=== PATIENT | female | born 1985 | race African-American/Black ===

== ENCOUNTER 2023-07-23 08:27 | Outpatient (OUT) | payer BC, SELFPAY ==
--- NOTE | 2023-07-23 08:32 | XR_ITS ---
The [address] [address] Patient Name: MEHDI ROSARIO MRN: [id number] date: 1985 Sex: F Assigned Patient Location: [facility] Current Patient Location: [facility] Accession/Order Number: [id number] Exam Date: 07/23/2023 08:42 Report Date: 07/23/2023 09:18 At the request of: PIETRO HOLLEY Procedure: XR chest 2V EXAM: XR chest 2V HISTORY: Bronchitis J40 COMPARISON: None. TECHNIQUE: PA and lateral views of the chest. FINDINGS: The cardiomediastinal silhouette is normal. No focal consolidation is identified. There is no pneumothorax. No pleural effusion is noted. The osseous structures are intact. XR/XR chest 2V IMPRESSION: No acute cardiopulmonary process. Electronically authenticated by: ANGEL WATERS Date: 07/23/2023 09:18
== END 2023-07-23 08:28 | disposition home or self-care (01) ==
LOC: RAD 08:27
PROVIDERS: PCP Nurse Practitioner Family; Visit Provider Nurse Practitioner Family
DX: J40 Bronchitis, not specified as acute or chronic (principal)
CPT/HCPCS: 71046

== ENCOUNTER 2023-10-29 19:58 | Outpatient (REF) | payer BC, SELFPAY ==
--- OUTSIDE RECORDS SUMMARY | 2023-10-29 20:03 | XMS_ITS | CCD ---
Author Name Unknown Address [address] [place] [address] Organization [facility] Care Team Providers Care Correctional Officer Chief Name Role Phone DR EMMANUEL HEIN Admitting Unavailable MELVINA, DR BENITEZ Attending Unavailable PIETRO HOLLEY Primary Care Unavailable WEST, DR INO Mc Consulting Unavailable MELVINA, DR BENITEZ Consulting Unavailable MELVINA, DR BENITEZ Admitting Unavailable MELVINA, DR BENITEZ Attending Unavailable KISHAN PIETRO [facility] Care Unavailable MELVINA, DR BENITEZ Consulting Unavailable Allergies Allergy Classification Reported Allergen(s) Allergy Type Date of Onset Reaction(s) Facility (1 source) Bisacodyl Drug Allergy 06-25-2015 [facility] (1 source) Loperamide Drug Allergy 10-16-2014 [facility] (1 source) Plasmin Drug Allergy 10-16-2014 [facility] Problems Problem Classification Problem Date Documented Date Episodic/Chronic Immunizations and screening for infectious disease (1 source) Encounter for screening for human papillomavirus (HPV); Translations: [ENC SCREENING HUMAN PAPILLOMAVIRUS] Onset: 09-29-2022 Episodic Menstrual disorders (4 sources) Irregular menstruation, unspecified; Translations: [IRREGULAR MENSTRUATION UNSPECIFIED] Onset: 10-18-2022 Chronic Other screening for suspected conditions (not mental disorders or infectious disease) (4 sources) Encounter for screening for malignant neoplasm of cervix; Translations: [ENC SCREENING MALIG NEOPLASM CERV] Onset: 09-25-2022 Episodic Results Test Name Value Interpretation Reference Range Facil ity US PELVIS AND TRANSVAGon US PELVIS AND TRANSVAG EXAMINATION: US PELVIS AND TRANSVAG HISTORY: Irregular periods COMPARISON: 01/26/2021 FINDINGS: Limited by patient body habitus. Transabdominal and transvaginal images The uterus is normal in size, contour and myometrial echotexture measuring 7.8 x 3.2 x 3.6 cm. No focal myometrial mass. Anteverted, anteflexed. Multiple areas of anechoic echogenicity in the cervix likely nabothian cysts The endometrium measures 8 mm, normal. The right ovary is grossly normal measuring 1.6 x 1.3 x 1.7 cm. The left ovary is grossly normal measuring 2.6 x 1.8 x 1.9 cm IMPRESSION: No acute abnormality Electronically authenticated by: INO BLACK Date: 2022-10-19 06:52 Normal [facility] PAP ACOG PANEL 2: 30 to 65on 09-28-2022 . . Normal [facility] Comment on above: Result Comment: Perf ormed at: WB Performed By: #### [id number] #### [facility] [address] [address] [address] Ashley Baez Age Gdln ACOG Testing - Normal [facility] Comment on above: Performed By: #### [id number] #### [facility] [address] [address] [address] Ashley Baez DIAGNOSIS: Comment Normal [facility] Comment on above: Result Comment: NEGA TIVE FOR INTRAEPITHELIAL LESION OR MALIGNANCY. Performed at: WB Performed By: #### [id number] #### [facility] [address] [address] [address] Ashley Baez HPV Aptima Negative Normal Negative [facility] Comment on above: Result Comment: This nucleic acid amplification test detects fourteen high-risk HPV types (16,18,31,33,35,39,45,51,52,56,58,59,66,68) without differentiation. Performed at: =G Performed By: #### [id number] #### [facility] [address] [address] [address] Ashley Baez HPV Genotype Reflex Comment Normal [facility] Comment on above: Result Comment: Crit eria not met, HPV Genotype not performed. Performed at: WB Performed By: #### [id number] #### [facility] [address] [address] [address] Ashley Baez Methodology: Comment Normal [facility] Comment on above: Result Comment: This liquid based ThinPrep(R) pap test was screened with the use of an image guided system. Performed at: WB Performed By: #### [id number] #### [facility] [address] [place] [address] Dr. Ashley Baez Note: Comment Normal [facility] Comment on above: Result Comment: The Pap smear is a screening test designed to aid in the detection of premalignant and malignant conditions of the uterine cervix. It is not a diagnostic procedure and should not be used as the sole means of detecting cervical cancer. Both false-positive and false-negative reports do occur. . Performed at: WB Performed By: #### [id number] #### [facility] [address] [address] [address] Ashley Baez Performed by: Comment Normal [facility] Comment on above: Result Comment: [employer] (ASCP) Performed at: WB Performed By: #### [id number] #### [facility] [address] [place] [address] Dr. Ashley Baez Specimen adequacy: Comment Normal [facility] Comment on above: Result Comment: Sati sfactory for evaluation. No endocervical component is identified. Performed at: WB Performed By: #### [id number] #### [facility] [address] [place] [address] Dr. Ashley Baez Encounters Encounter Date Encounter Type Care Provider Facility Start: 10-18-2022 End: 10-19-[address] EMMANUEL HEIN Facility: Start: 09-25-2022 End: 09-25-[address] EMMANUEL HEIN Facility:[facility] Payers Date Payer Category Payer Unknown [id number] 1985 Unknown [id number] 1957 Unknown [id number] Summary Purpose Family History No Family History Records Found Advance Directives No Advanced Directives Records Found Additional Source Comments INFORMATION SOURCE (unrecogn ized section and content) DATE CREATED AUTHOR 10/22/2022 [facility] FOR RECORDS PERTAINING TO PATIENTS WHO ARE OR HAVE BEEN ENROLLED IN A CHEMICAL DEPENDENCY/SUBSTANCEABUSE PROGRAM, SOME INFORMATION MAY BE OMITTED. This clinical summary was aggregated from multiple sources. Caution should be exercised in using it in the provision of clinical care. This summary normalizes information from multiple sources, and as a consequence, information in this document may materially change the coding, format and clinical context of patient data. In addition, data may be omitted in some cases. CLINICAL DECISIONS SHOULD BE BASED ON THE PRIMARY CLINICAL RECORDS. [facility] provides no warranty or guarantee of the accuracy or completeness of information in this document.
[2023-11-02 09:08] LABS: Age Gdln ACOG Testing Note (.); HPV Aptima Negative (Negative); IGP, Aptima HPV, rfx 16/18,45 Note (.)
== END 2023-10-29 19:59 | disposition home or self-care (01) ==
LOC: LAB 19:58
PROVIDERS: PCP Nurse Practitioner Family; Visit Provider Obstetrics & Gynecology
DX: Z01.419 Encounter for gynecological examination (general) (routine) without abnormal findings (principal)
CPT/HCPCS: 87624; G0145

== ENCOUNTER 2024-11-03 19:40 | Outpatient (REF) | payer BC, SELFPAY ==
--- OUTSIDE RECORDS SUMMARY | 2024-11-03 19:43 | XMS_ITS | CCD ---
Author Organization [facility] Care Team Providers Care Engagement Lead Name Role Phone DR EMMANUEL HENRY Admitting Unavailable MELVINA, DR BENITEZ Attending Unavailable PIETRO HOLLEY Primary Care Unavailable WEST, DR INO Mc Consulting Unavailable MELVINA, DR BENITEZ Consulting Unavailable MELVINA, DR BENITEZ Admitting Unavailable MELVINA, DR BENITEZ Attending Unavailable PIETRO HOLLEY Primary Care Unavailable MELVINA, DR BENITEZ Consulting Unavailable Puneet CLAYTON, Hung Primary Care Provider Cristina Bateman DO Unavailable EMMANUEL HENRY Attending Unavailable MANUEL JOSHUA Attending Unavailable MANUEL JOSHUA Referring Unavailable Allergies Allergy Classification Reported Allergen(s) Allergy Type Date of Onset Reaction(s) Facility (1 source) Bisacodyl Drug Allergy 5 [facility] (1 source) Loperamide Drug Allergy 5 [facility] (1 source) Plasmin Drug Allergy 5 [facility] (3 sources) Loperamide Drug Allergy 3 Unknown [facility] (3 sources) Loratadine Allergy to substance 3 Unknown [facility] (3 sources) Mold Extract Drug Allergy 4 Unknown [facility] (3 sources) SUMAtriptan Drug Allergy 4 Dizziness, Unknown [facility] Medications Current Medications Medication Drug Class(es) Dates Sig (Normalized) Sig (Original) [id number] 200 actuat albuterol 0.09 mg/actuat metered dose inhaler (3 sources) beta2-Adrenergic Agonist Start: 11-24-19 23 End: 09-15-19 25 take 1-2 puff(s) by mouth every four hours as needed albuterol HFA 90 mcg/act inhaler INHALE 1 TO 2 PUFFS BY MOUTH EVERY 4 HOURS NEEDED 11/23/2022 09/15/2024 Discontinued Bioflavonoid Products (Carmen-C) tablet (3 sources) Bioflavonoid Pro ducts (Carmen-C) tablet Take by mouth. Active Elderberry preparation (3 sources) Elderberry 500 M G capsule Elderberry Active [id number] 0.3 ml EPINEPHrine 1 mg/ml auto-injector (3 sources) alpha-Adrenergic Agonist, beta-Adrenergic Agonist, Catecholamine EPINEPHrine (Epipen) 0.3 MG/0.3ML injection syringe DIRECTED Active ethinyl estradiol 0.035 mg / norethindrone 0.75 mg oral tablet (3 sources) Estrogen Start: 10-29-19 End: 10-28-19 take 1 tablet by mouth in the morning norethindrone-ethinyl estradiol (Ortho-Novum , 28,) 0.5/0.75/1-35 MG-MCG tablet Indications: control counseling Take 1 tablet by mouth in the morning. 28 tablet 12 10/29/2023 10/28/2024 Active medroxyPROGESTERone acetate 10 mg oral tablet (3 sources) Progestin Start: 09-26-19 take 1 tablet by mouth in the morning medroxyPROGESTERone (Provera) 10 MG tablet Take 10 mg by mouth in the morning. 09/26/2022 Active 24 hr metFORMIN hydrochloride 500 mg extended release oral tablet (3 sources) Biguanide Start: 12-27-19 take 2 tablets by mouth every twenty-four hours at mealtime metFORMIN XR (Glucophage-XR) 500 MG 24 hr tablet Indications: Insulin resistance Take 2 tablets (1,000 mg) by mouth in the evening. Take with meals 60 tablet 11 12/27/2023 Active Misc Natural Products (AIRBORNE ELDERBERRY PO) (3 sources) Misc Natural Pro ducts (AIRBORNE ELDERBERRY PO) Airborne Elderberry Active Multiple Vitamins-Minerals (Airborne) effervescent tablet (3 sources) Multiple Vitamins-Minerals (Airborne) effervescent tablet Take by mouth. Active predniSONE 10 mg oral tablet (2 sources) Start: 09-15-19 End: 09-27-19 predniSONE (Deltasone) 10 MG tablet Indications: Achilles tendinitis of right lower extremity Take 1 tablet (10 mg) by mouth See administration instructions for 12 days Take one tablet three times a day x 3 days, then take one tablet twice a day x 3 days, then take one tablet once a day x 3 days, then take 1/2 tab once a day x 3 days 20 tablet 09/15/2024 09/27/2024 Active Problems Problem Classification Problem Date Documented Date Episodic/Chronic Immunizations and screening for infectious disease (1 source) Encounter for screening for human papillomavirus (HPV); Translations: [ENC SCREENING HUMAN PAPILLOMAVIRUS] Onset: 09-29-2022 Episodic Menstrual disorders (4 sources) Irregular menstruation, unspecified; Translations: [IRREGULAR MENSTRUATION UNSPECIFIED] Onset: 10-18-2022 Chronic Other connective tissue disease (2 sources) Right achilles tendonitis; Translations: [Achilles tendinitis, right leg] 09-15-2024 Episodic Other connective tissue disease (2 sources) Deformity of lower limb; Translations: [Contracture of muscle, right lower leg] 09-15-2024 Episodic Other connective tissue disease (2 sources) Pain in right heel; Translations: [Pain in right foot] 09-15-2024 Episodic Other screening for suspected conditions (not mental disorders or infectious disease) (4 sources) Encounter for screening for malignant neoplasm of cervix; Translations: [ENC SCREENING MALIG NEOPLASM CERV] Onset: 09-25-2022 Episodic Results Test Name Value Interpretation Reference Range Facil ity XR Calcaneus - right 2 Views on 09-15-2024 Imaging Result: Lateral and calcaneal axial views taken of right heel and show no fractures or dislocations. No lytic lesion with os calcis. Small posterior heel spurring present. Rectus foot type. Small osteophyte formation dorsal tn joint. [facility] Study observation (narrative) [facility] US PELVIS AND TRANSVAGon US PELVIS AND [...] by: INO BLACK Date: 2022-10-19 06:52 Normal [facility] PAP ACOG PANEL 2: 30 to 65on 09-28-2022 . . Normal [facility] Comment on above: Result Comment: Perf ormed at: WB Performed By: #### [id number] #### [facility] [address] [place] [address] Dr. Ashley Baez Age Gdln ACOG Testing Normal [facility] Comment on above: Performed By: #### [id number] #### [facility] [address] [place] [address] Dr. Ashley Baez DIAGNOSIS: Comment Normal [facility] Comment on above: Result Comment: NEGA TIVE FOR INTRAEPITHELIAL LESION OR MALIGNANCY. Performed at: WB Performed By: #### [id number] #### [facility] [address] [place] [address] Dr. Ashley Baez HPV Aptima Negative Normal Negative [facility] Comment on above: Result Comment: This nucleic acid amplification test detects fourteen high-risk HPV types (16,18,31,33,35,39,45,51,52,56,58,59,66,68) without differentiation. Performed at: =G Performed By: #### [id number] #### [facility] [address] [address] [address] Ashley Baez HPV Genotype Reflex Comment Normal [facility] Comment on above: Result Comment: Crit eria not met, HPV Genotype not performed. Performed at: WB Performed By: #### [id number] #### [facility] [address] [place] [address] Dr. Ashley Baez Methodology: Comment Normal [facility] Comment on above: Result Comment: This liquid based ThinPrep(R) pap test was screened with the use of an image guided system. Performed at: WB Performed By: #### [id number] #### [facility] [address] [place] [address] Dr. Ashley Baez Note: Comment Normal [facility] Comment on above: Result Comment: The Pap smear is a screening test designed to aid in the detection of premalignant and malignant conditions of the uterine cervix. It is not a diagnostic procedure and should not be used as the sole means of detecting cervical cancer. Both false-positive and false-negative reports do occur. . Performed at: WB Performed By: #### [id number] #### [facility] [address] [place] [address] Dr. 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 Ashley Baez Specimen adequacy: Comment Normal [facility] Comment on above: Result Comment: Sati sfactory for evaluation. No endocervical component is identified. Performed at: WB Performed By: #### [id number] #### [facility] [address] [place] [address] Dr. Ashley Baez Vital Signs Date Time Vital Sign Value Performing Clinician Justus escalera 09-15-2024 09:36-0500 Body height 172.7 cm Manuel TOTHM Work Phone: [facility] 09-15-2024 09:36-0500 Body mass index (BMI) [Ratio] 59 kg/m2 Manuel Joshua DPM Work Phone: [facility] 09-15-2024 09:36-0500 Body weight 176 kg Manuel TOTHM Work Phone: [facility] Healthcare Encounters Encounter Date Encounter Type Care Provider Facility Start: 09-15-2024 End: 09-15-2024 Bamboo flowsheet Manuel Joshua DPM Work Phone: [facility] Start: 09-15-2024 End: 09-15-2024 Bamboo flowsheet Manuel Joshua DPM Work Phone: [facility] Start: 09-15-2024 End: 09-15-2024 ambulatory MANUEL JOSHUA Not Available Start: 09-15-2024 End: 09-15-2024 Office outpatient new 45 minutes Manuel Joshua DPM Work Phone: [facility] Comment on above: Achilles tendinitis of right lower extremity (Primary Dx); Gastrocnemius equinus of right lower extremity; Pain of right heel Start: 09-15-2024 End: 09-15-2024 ambulatory MANUEL JOSHUA Not Available Start: 10-29-2023 End: 10-29-2023 ambulatory EMMANUEL HENRY Not Available Start: 10-18-2022 End: 10-19-[address] EMMANUEL HENRY Facility:[facility] Start: 09-25-2022 End: 09-25-[address] EMMANUEL HENRY Facility:[facility] Procedures Date Procedure Procedure Detail Performing Clinician Start: 09-15-2024 Radex calcaneus mini mum 2 views Manuel Joshua DPM Work Phone: Start: 09-25-2022 Microscopic observat ion [Identifier] in Cervix by Cyto stain Manuel Joshua DPM Work Phone: Plan of Treatment Date Care Activity Detail Author Start: 09-25-2027 Screening for malign ant neoplasm of cervix [facility] Start: 11-03-2024 End: 11-03-2024 Patient encounter procedure 11/03/2024 1:00 PM EST Office Visit [facility] [address] [place] [address] Emmanuel Henry, [address] [place], [place] [id number] [facility] Start: 10-13-2024 End: 10-13-2024 Patient encounter procedure 10/13/2024 8:30 AM EST Office Visit [facility] [address] [place] [address] Manuel Joshua DPM [address] [place], [place] [id number] [facility] Start: 09-15-2024 End: 09-15-2024 Patient encounter procedure 09/15/2024 9:30 AM EST Office Visit [facility] [address] [place] [address] Manuel Joshua DPM [address] [place] [address] Arrived [facility] Comment on above: Arrived Start: 05-10-2024 Influenza vaccination Influenza Vacc ine (#1) [facility] Healthcare Payers Date Payer Category Payer [facility] [id number] 1987 Unknown [id number] 1987 Unknown [id number] 1987 Unknown [id number] 1987 Unknown [id number] 1987 Unknown [id number] 1959 Unknown [id number] Social History Date Type Detail Facility Start: 05-31-2023 End: 09-15-2024 Tobacco smoking status NHIS Never smoked tobacco [facility] care Start: 10-29-2023 End: 09-15-2024 Alcoholic beverage intake Current drinker of alcohol (finding) [facility] Start: 05-31-2023 End: 09-15-2024 History of Social function [facility] Start: 05-31-2023 End: 09-15-2024 Tobacco use panel [facility] Start: 1985 Sex assigned at Not on file N [facility] History of Present illness Narrative 09-15-2024 Manuel Joshua, DPM - 09/15/2024 9:30 AM EST Note Date & Type Note Facility 09-15-2024 History of Presen t illness Narrative Images from the original note were not included. Subjective Patient ID: Eloisa Currie is a 39 y.o. female who presents for Foot Pain (Eloisa Currie 39yo Established patient presents Right heel pain, started 3 weeks ago, NKI, patient relates icing, heat. Advil 1 time daily. Typically wears [place]. SS 11). HPI Patient presents complaining of right heel pain that has been present for 3 weeks. She denies injury. She has not diabetic. She states the heel is painful 1st thing in the morning and with each step she takes. She is tried Advil, ice, heat. She wears Watson dress shoes. 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 Where she spends most of her day seated. She has worn inserts in the past, but has not worn them recently Review of Systems Medications Current Outpatient Medications: Bioflavonoid Products (Carmen-C) tablet, Take by mouth., Disp: , Rfl: Elderberry 500 MG capsule, Elderberry, Disp: , Rfl: EPINEPHrine (Epipen) 0.3 MG/0.3ML injection syringe, DIRECTED, Disp: , Rfl: medroxyPROGESTERone (Provera) 10 MG tablet, Take 10 mg by mouth in the morning., Disp: , Rfl: metFORMIN XR (Glucophage-XR) 500 MG 24 hr tablet, Take 2 tablets (1,000 mg) by mouth in the evening. Take with meals, Disp: 60 tablet, Rfl: 11 Misc Natural Products (AIRBORNE ELDERBERRY PO), Airborne Elderberry, Disp: , Rfl: Multiple Vitamins-Minerals (Airborne) effervescent tablet, Take by mouth., Disp: , Rfl: norethindrone-ethinyl estradiol (Ortho-Novum , 28,) 0.5/0.75/1-35 MG-MCG tablet, Take 1 tablet by mouth in the morning., Disp: 28 tablet, Rfl: 12 predniSONE (Deltasone) 10 MG tablet, Take 1 tablet (10 mg) by mouth See administration instructions for 12 days Take one tablet three times a day x 3 days, then take one tablet twice a day x 3 days, then take one tablet once a day x 3 days, then take 1/2 tab once a day x 3 days, Disp: 20 tablet, Rfl: 0 Allergies Loperamide hcl, Loratadine, Molds & smuts, and Sumatriptan Past Surgical History Past Surgical History: Procedure Laterality Date BACK SURGERY 10/2020 ablasion Family History No family history on file. Objective Physical Exam Constitutional: General: She is not in acute distress. HENT: Head: Atraumatic. Cardiovascular: Comments: Pedal pulses: DP pulses are 2/4, PT pulses are 2/4 Skin temp is warm to warm. Varicosities: none Hair growth: present Pulmonary: Effort: Pulmonary effort is normal. No respiratory distress. Musculoskeletal: Comments: ROM: AJ dorsiflexion is limited with knee extended and does not improve with knee flexed. STJ ROM WNL. MUSCLE STRENGTH: 5/5 for all quadrants without tenderness. PAIN: Pain with palpation of the Achilles tendon at the musculotendinous junction, watershed zone, and insertion. Most severe pain is at the achilles insertion. There is no pain with lateral compression of heel. No pain at peroneal or PT tendon. WB exam shows mild collapse of the medial longitudinal arch. She is able to do a double heel rise, hindfoot inverts past neutral Skin: General: Skin is warm. Capillary Refill: Capillary refill takes less than 2 seconds. Findings: No bruising or erythema. Comments: SKIN FINDINGS: Webspaces are clean and dry. Skin turgor and texture normal HYPERKERATOSIS: none Neurological: Mental Status: She is alert. Comments: No loss of protective sensation, gross sensation intact. Psychiatric: Mood and Affect: Mood normal. Behavior: Behavior normal. XR calcaneus 2 views right Imaging Result: Lateral and calcaneal axial views taken of right heel and show no fractures or dislocations. No lytic lesion with os calcis. Small posterior heel spurring present. Rectus foot type. Small osteophyte formation dorsal tn joint. Assessment/Plan ICD-10-CM 1. Achilles tendinitis of right lower extremity M76.61 XR calcaneus 2 views right predniSONE (Deltasone) 10 MG tablet 2. Gastrocnemius equinus of right lower extremity M62.461 3. Pain of right heel M79.671 Patient was examined and evaluated. Reviewed radiographic and clinical findings with the patient. Discuss diagnosis of Achilles tendonitis with the patient. Stress the importance of good supportive tie shoes. Advise no flip flops, slippers, sandals, nor bare feet. Recommended she be fit and measured for new tennis shoes at [employer]. This information was dispensed to the patient. Explain the anatomy of the Achilles tendon, equinus, and heel spurs. Demonstrate stretching exercises and give handout for the same. Also advise icing therapy. Patient Has dress shoes today so she was unable to effectively try a power step orthotics. She will return with her tennis shoes to try a power step inserts. I also discussed that we could try heel lifts at that time. ERx Prednisone 10 mg taper. Potential S.E. cautioned. Activity discussed and to minimize irritation to the heel area. RTO 4 weeks. At that time may consider physical therapy or a peroid of immobilization if minimal improvement This note was created with the assistance of a speech recognition program. While intending to generate a timely document that accurately reflects the content of the visit, no guarantee can be provided that every grammatical or spelling mistake has been or will be identified or corrected. Thank you for your understanding. Manuel Joshua DPM documented in this encounter [facility] Evaluation note Note Date & Type Note Facility Evaluation note Diagnosis Achilles tendinitis of right lower extremity- Primary Gastrocnemius equinus of right lower extremity Pain of right heel documented in this encounter [facility] Summary Purpose Family History No Family History Records FoundNo Family History Records Found Advance Directives No Advanced Directives Records FoundNo Advanced Directives Records Found Additional Source Comments INFORMATION SOURCE (unrecogn ized section and content) DATE CREATED AUTHOR 10/22/2022 [facility] DATE CREATED AUTHOR AUTHOR'S ORGANIZ ATION 09/21/2024 [facility] Care Teams (unrecognized sec tion and content) Engagement Lead Relationship Specialty Start Date End Date Hung Teixeira MD [address] [place] [address] PCP - General Family Medicine 08/24/24 Cristina Bateman DO [address] [place] [address] Referring Physician Neurology 08/24/24 Engagement Lead Relationship Specialty Start Date End Date Hung Teixeira MD [address] [place] [id number] [phone] PCP - General Family Medicine 08/24/24 Cristina Bateman DO [address] [place] [address] Referring Physician Neurology 08/24/24 Reason for Visit (unrecogniz ed section and content) Reason Comments Foot Pain Eloisa Currie 39yo E stablished patient presents Right heel pain, started 3 weeks ago, NKI, patient relates icing, heat. Advil 1 time daily. Typically wears [place]. SS 11 FOR RECORDS PERTAINING TO PATIENTS WHO ARE [...] BE BASED ON THE PRIMARY CLINICAL RECORDS. [facility] [employer] [facility]. provides no warranty or guarantee of the accuracy or completeness of information in this document.
[2024-11-07 10:08] LABS: Age Gdln ACOG Testing Note (.); HPV Aptima Negative (Negative); IGP, Aptima HPV, rfx 16/18,45 Note (.)
== END 2024-11-03 19:41 | disposition home or self-care (01) ==
LOC: LAB 19:40
PROVIDERS: PCP Nurse Practitioner Family; Visit Provider Obstetrics & Gynecology
DX: Z01.419 Encounter for gynecological examination (general) (routine) without abnormal findings (principal)
CPT/HCPCS: 87624; 88175